=== PATIENT | female | born 1975 ===

== ENCOUNTER 2019-02-08 04:56 | Emergency (ER) | payer MEDICAID ==
--- NOTE | 2019-02-08 08:53 | Emergency Department Report ---
ED General Adult HPI - General Chief complaint: Pain General Stated complaint: LEFT SIDE SHOULDER PAIN Time Seen by Provider: 02/08/19 07:07 Source: patient Mode of arrival: Ambulatory Limitations: No Limitations - History of Present Illness Initial comments: This is a 43-year-old female who presents to the emergency room with left shoulder and posterior neck pain for 2 days. Patient states last she went to pain management and had trigger point injections with epidural and been experiencing worsening pain ever since. Patient states initially she went to her pain management doctor because her lower back was irritated nerve which is now progressed to upper back and left shoulder. She went to [place] 3 days ago and was told there was nothing they could do went to follow back up with her pain management doctor. Patient states she went to pain management and they told her she would need to follow up in the ER. She does have a orthopedic surgeon which she have a follow-up appointment with him next . She denies a fever, chills, numbness or tingling, change in urinary or bowel pattern, swelling, or weakness. Onset/Timin -: days(s) Location: back, upper extremity (left [place]) Radiation: non-radiation Severity scale (0 -10): 6 Quality: aching Consistency: intermittent Improves with: none Worsens with: movement Associated Symptoms: denies other symptoms Treatments Prior to Arrival: cold therapy, other (prescriptive pain medication) - Related Data Previous Rx's Medication Instructions Recorded Last Taken Type methOCARBAMOL [Robaxin TAB] 500 mg PO BID PRN #15 tab 02/08/19 Unknown Rx Allergies Allergy/AdvReac Type Severity Reaction Status Date / Time tramadol Allergy Severe Anaphylaxis Verified 02/08/19 08:45 zolpidem [From Ambien] Allergy Anaphylaxis Verified 02/08/19 08:49 ED Review of Systems ROS: Stated complaint: LEFT SIDE SHOULDER PAIN Other details as noted in HPI Constitutional: denies: chills, fever Respiratory: denies: cough, shortness of breath, wheezing Cardiovascular: denies: chest pain, palpitations Gastrointestinal: denies: abdominal pain, nausea, diarrhea Musculoskeletal: back pain, arthralgia (left shoulder pain). denies: joint swelling Skin: denies: rash, lesions Neurological: denies: headache, weakness, paresthesias Psychiatric: denies: anxiety, depression ED Past Medical Hx - Past Medical History Previous Medical History?: Yes Hx Psychiatric Treatment: Yes (Bipolar) Hx Asthma: Yes Additional medical history: Chronic Pain (Neck, Back, Shoulders) Fibromayalgia. Thyroid Disease, Anemia, - Surgical History Past Surgical History?: No - Social History Smoking Status: Never Smoker Substance Use Type: None - Medications Home Medications: Home Medications Medication Instructions Recorded Confirmed Last Taken Type methOCARBAMOL [Robaxin TAB] 500 mg PO BID PRN #15 tab 02/08/19 Unknown Rx ED Physical Exam - General Limitations: No Limitations General appearance: alert, in no apparent distress, obese - Neck Neck exam: Present: tenderness (bilateral trapezius tenderness, no erythema or swelling), full ROM. Absent: lymphadenopathy - Respiratory Respiratory exam: Present: normal lung sounds bilaterally. Absent: respiratory distress - Cardiovascular Cardiovascular Exam: Present: regular rate, normal rhythm. Absent: systolic murmur, diastolic murmur, rubs, gallop - GI/Abdominal GI/Abdominal exam: Present: soft, normal bowel sounds. Absent: distended, tenderness, guarding, rebound, rigid - Expanded Upper Extremity Exam Left Shoulder Exam: Present: crepidus, tenderness over AC joint. Absent: full ROM (limits her range of motion secondary pain), swelling, abrasion, laceration, ecchymosis, deformity, dislocation, erythema Upper Arm exam: Present: normal inspection Elbow exam: Present: normal inspection, full ROM Forearm Wrist exam: Present: normal inspection, full ROM Hand Wrist exam: Present: normal inspection, full ROM Neuro motor exam: Present: wrist extension intact, thumb opposition intact, thumb IP flexion intact, thumb adduction intact, fingers 2-5 abduction intact Neurosensory exam: Present: radial nerve intact, ulnar nerve intact, median nerve intact Vascular: Present: normal capillary refill, radial pulse - Back Exam Back exam: Present: normal inspection - Neurological Exam Neurological exam: Present: alert, oriented X3 - Psychiatric Psychiatric exam: Present: normal affect, normal mood - Skin Skin exam: Present: warm, dry, intact, normal color. Absent: rash ED Course Vital Signs 02/08/19 02/08/19 05:00 08:58 Temperature 98.1 F 97.7 F Pulse Rate 107 H 91 H Respiratory 18 16 Rate Blood Pressure 124/78 Blood Pressure 121/86 [Right] O2 Sat by Pulse 100 98 Oximetry ED Medical Decision Making - Medical Decision Making Patient was examined by this provider. This is acute on chronic pain. Toradol 30 mg IM. Patient had pain management and orthopedic surgeon to follow-up with. Instructed to continue taking current prescribed medication. Patient have follow up appoint with Orthopedic surgeon next week. Instructed to keep that appointment. Start Robaxin. Plan discussed with patient to discharge home and treat outpatient. Patient discharged home in stable condition. Follow up with PCP and dentist in 2-3 days. Critical care attestation.: If time is entered above; I have spent that time in minutes in the direct care of this critically ill patient, excluding procedure time. ED Disposition Clinical Impression: Bilateral neck pain Shoulder pain, acute Qualifiers: Laterality: left Qualified Code(s): M25.512 - Pain in left shoulder Shoulder arthralgia Qualifiers: Laterality: left Qualified Code(s): M25.512 - Pain in left shoulder Disposition: TO HOME OR SELFCARE Is pt being admited?: No Does the pt Need Aspirin: No Condition: Stable Instructions: Osteoarthritis (ED), Cervical Radiculopathy (ED) Additional Instructions: Continue taking current pain medication prescribed by pain management. Follow up with Orthopedic Surgeon and pain management. Prescriptions: methOCARBAMOL [Robaxin TAB] 500 mg PO BID PRN #15 tab PRN Reason: Muscle Spasm Referrals: DARIANA TORRE MD [Primary Care Provider] - 3-5 Days [facility] [Provider Group] - 3-5 Days ZANE ARVIZU MD [Staff Physician] - 3-5 Days Forms: Work/School Release Form(ED) Time of Disposition: 08:55
[2019-02-08 08:59] VITALS: BP 121/86
[2019-02-08] MEDS ORDERED: TORADOL IM ONE (09:32)
== END 2019-02-08 09:55 | disposition home or self-care (01) ==
LOC: ED 04:56
DX: M25.512 Pain in left shoulder (principal); M54.2 Cervicalgia; F31.9 Bipolar disorder, unspecified; G89.29 Other chronic pain; Z79.899 Other long term (current) drug therapy; Z88.6 Allergy status to analgesic agent; Z88.8 Allergy status to other drugs, medicaments and biological substances
CPT/HCPCS: 96372; 99282; J1885